=== PATIENT | male | born 1955 | race Caucasian/White ===

== ENCOUNTER 2018-01-22 07:00 | Day surgery (SDC) | payer OTHER ==
[~2018-01-22] VITALS: Ht 190.5 cm; Wt 228.6 kg
[~2018-01-22 07:00] MED LIST: ALDACTONE25 MG PO; ALLOPURINOL300 MG PO; COREG6.25 MG PO; DILTIAZEM 24HR120 MG PO; FUROSEMIDE40 MG PO; GABAPENTIN600 MG PO; INDOMETHACIN25 MG PO; LIPITOR40 MG PO; LISINOPRIL20 MG PO; MORPHINE SULFAT30 M5 PO; OXYCODONE-ACET1 EAC3 PO; VITAMIN D1000 UNI1 PO; WARFARIN SODIUM10 MG PO
--- NOTE | 2018-01-22 08:01 | NUR ---
LIDOCAINE NEB TX STARTED
--- NOTE | 2018-01-22 08:46 | NUR ---
01/22/18 0846 Rajwinder Ruiz 0803-PATIENT ARRIVED TO PACU ON 6L MASK O2 SAT 99% PATIENT REACTIVE ORAL AIRWAY REMOVED PATIENT WAKING UP EYES OPEN. RR EVEN. AFIB
--- NOTE | 2018-01-22 13:52 | OR ---
[facility] [address], [place] [address] Signed DATE OF OPERATION: 01/22/2018 SURGEON: Yue Liang MD UPPER ENDOSCOPY PREOPERATIVE DIAGNOSES: 1. Morbid obesity. 2. Preop gastric bypass. POSTOPERATIVE DIAGNOSES: 1. Erad-lh-yvreoftm diffuse gastritis. 2. Cevzecf-ti-xvixnthx hiatal hernia. PROCEDURE: EGD with CLOtest and biopsies of the antrum. ESTIMATED BLOOD LOSS: None. INDICATIONS: Lobito is a 62-year-old morbidly obese individual who has headed for gastric surgery. He is connected with our [facility]. As is common, he is asked to see me for upper endoscopy prior to his surgery. He has already been through a couple of colonoscopy, so he is familiar with endoscopy. In the office, I gave him a pamphlet on upper endoscopy and we looked at that together. He understands the nature of that test along with its risks including, but not limited to gas bloating, crampy abdominal pain, bleeding, perforation, requiring surgery, and missed diagnosis. He also understands the need for IV conscious sedation. Given his morbid obesity, his very heavy full thick neck with his daily need for narcotics, his need for CPAP for his sleep apnea and the fact that he woke up easily during his colonoscopies, so we were going to ask anesthesia provider to help us with increased monitoring and sedation with propofol. He had expressed understanding and wished to proceed. DESCRIPTION OF PROCEDURE: Lobito was taken into our endoscopy suite and placed in the supine semi-recumbent position. The posterior oropharynx was anesthetized with Hurricaine spray. A bite block was utilized for the case. He was given IV sedation with propofol per our nurse technical support representative. The adult gastroscope was introduced and advanced all the way out into the third portion of the duodenum under direct visualization of the camera. The duodenum Electronically Signed By: YUE LIANG MD 01/22/18 1352 PATIENT NAME: LOBITO CRUZ OPERATIVE REPORT DATE OF : 55 REPORT #: [id number] PHYSICIAN: YUE LIANG MD PCP: HI ADAMS MD REPORT IS CONFIDENTIAL AND NOT TO BE RELEASED WITHOUT AUTHORIZATION [facility] [address], [place] [address] Signed and pyloric channel were unremarkable. In the stomach, he had mild diffuse erythematous changes consistent with mild gastritis. We took biopsies of the antrum for CLOtest as well as pathologic review. Upon retroflexion of the scope, he had some fluid up around the GE junction. Even with a large amount of insufflation, we never could get that opened up. We could not suction out that fluid out sufficiently to see clearly. Nevertheless, we can see the stomach getting pulled up into that area and it looks like he probably has a minimal to moderate sized hiatal hernia. He might benefit from a simple barium swallow in that regard. The scope was then withdrawn up to the GE junction, which was compliant without stricture. We saw no gastric or esophageal varices. He has minimal disruption to the Z-line. No Noriega's mucosa, no distal esophagitis. The middle and upper esophagus were unremarkable. After this, the gas was suctioned out and the gastroscope removed. Lobito tolerated his procedure quite well. RECOMMENDATIONS: I will see Lobito back in my office in 7 to 14 days to review his results. He might consider a simple barium swallow to better evaluate the GE junction. Yue Liang MD ALB/MODL /[id number] cc: MD Yue Dowell MD Delwyn Baker, MD Copies: IMTIAZ BURLESON MD, ANDREW L MD BAKER, DELWYN MD ~ Electronically Signed By: YUE LIANG MD 01/22/18 1352 PATIENT NAME: LOBITO CRUZ OPERATIVE REPORT DATE OF : 55 REPORT #: [id number] PHYSICIAN: YUE LIANG MD PCP: HI ADAMS MD REPORT IS CONFIDENTIAL AND NOT TO BE RELEASED WITHOUT AUTHORIZATION
--- NOTE | 2018-01-22 15:05 | NUR ---
PT AND KOLBY YADAV WERE ENGAGED IN QUITE A DISCUSSION WHEN I ENTERED THE . I FOUND PT TO BE ALERT AND ORIENTED. PT SEEMED INFORMED, PLEASANT AND REQUESTED PRAYER. WILL FOLLOW NEEDED
== END 2018-01-22 09:23 | disposition home or self-care (01) ==
LOC: DS 07:00 → OPS 07:00 → DS 08:45
PROVIDERS: Colon & Rectal Surgery
PROC: 0DB78ZX Excision of Stomach, Pylorus, Via Natural or Artificial Opening Endoscopic, Diagnostic (ICD-10-PCS; principal; 2018-01-22 08:45)
DX: K29.50 Unspecified chronic gastritis without bleeding (principal); K44.9 Diaphragmatic hernia without obstruction or gangrene; E66.01 Morbid (severe) obesity due to excess calories; E78.5 Hyperlipidemia, unspecified; I10 Essential (primary) hypertension; I48.91 Unspecified atrial fibrillation; G47.33 Obstructive sleep apnea (adult) (pediatric); Z79.1 Long term (current) use of non-steroidal anti-inflammatories (NSAID); Z79.891 Long term (current) use of opiate analgesic; Z79.899 Other long term (current) drug therapy; Z68.44 Body mass index [BMI] 60.0-69.9, adult; Z79.01 Long term (current) use of anticoagulants
CPT/HCPCS: 86677; 88305; J2704; J7120